=== PATIENT | male | born 1960 | race Caucasian/White ===

== ENCOUNTER → 2023-11-13 09:40 | Outpatient (REF) | payer OTHER, SELFPAY | LOC: RAD 09:40 | PROVIDERS: ATTENDING PHYSICIAN Family Medicine | DX: I63.81 Other cerebral infarction due to occlusion or stenosis of small artery (principal) | CPT/HCPCS: 93880 ==

== ENCOUNTER 2023-12-30 12:27 | Emergency (ER) | payer OTHER, SELFPAY ==
[2023-12-30] VITALS (9 sets, daily range): BP systolic 130–146; BP diastolic 90–104; PULSE 78–87
[2023-12-30 13:31] LABS: % Basophils 0.9 % (0-2); % Immature Granulocytes 0.4 % (0-0.5); % Lymphocytes 15.6 % (20.5-51.1); % Monocytes 6.4 % (1.7-9.3); % Neutrophils 72.7 % (42.2-75.2); Absolute Basophils 0.1 10^3/uL (0-0.2); Absolute Eosinophils 0.3 10^3/uL (0-0.7); Absolute Lymphocytes 1.1 10^3/uL (1.2-3.4); Absolute Monocytes 0.4 10^3/uL (0.1-0.6); Absolute Neutrophils 4.9 10^3/uL (1.4-6.5); Hematocrit 42.3 % (39.0-52.0); Hemoglobin 15.6 g/dL (13.0-18.0); Mean Corp Hgb Conc. 36.9 g/dL (33.0-37.0); Mean Corpuscular Hgb 31.4 pg (27.0-31.0); Mean Corpuscular Volume 85.1 fL (80.0-94.0); Mean Platelet Volume 9.8 fL (7.4-10.4); Nucleated Red Blood Cells % 0 % (-); Platelet Count 215 10^3/uL (130-400); Red Blood Cell Count 4.97 10^6/uL (4.70-6.10); Red Cell Dist. Width 12.9 % (11.5-14.5); White Blood Cell Count 6.7 10^3/uL (4.8-10.8)
[2023-12-30 13:51] LABS: ALT (SGPT) 28 U/L (0-50); AST (SGOT) 27 U/L (17-59); Albumin 4.3 g/dl (3.5-5.0); Alkaline Phosphatase 66 U/L (38-126); Blood Urea Nitrogen 15 mg/dl (9-20); Calcium 9.2 mg/dl (8.4-10.2); Carbon Dioxide 27 mmol/L (22-30); Chloride 102 mmol/L (98-107); Glucose 136 mg/dl (70-99); Magnesium 2.1 mg/dl (1.6-2.3); Potassium 4.1 mmol/L (3.5-5.1); Sodium 136 mmol/L (135-145); Total Bilirubin 1.1 mg/dl (0.2-1.3); Total Protein 6.8 g/dl (6.3-8.2); eGFR > 60.00
[2023-12-30 13:57] LABS: Troponin I < 0.012 ng/ml
--- NOTE | 2023-12-30 14:49 | ED.GENMED ---
History of Present Illness
General
Chief Complaint: Fainting/Passed Out
Source: patient and spouse
Exam Limitations: none
Time Seen by Provider: 12/30/23 12:47
Travel History
Have you had any contact with someone who has COVID-19?: No
Do you have any symptoms of coronavirus? Fever > 100 degrees, chills, cough, shortness of breath, sore throat, loss of taste or smell, muscle aches, or headache?: No
History of Present Illness
History of Present Illness:
This is a 63yo male who presents after he passed out at home. he states that he had had walked the dog and felt fine. he had intercourse with his and had taken a dose of a Viagra like medicine. Patient states he then went down to mid breakfast
and was walking out to sit down and have breakfast when he began to feel lightheaded like he is going to pass out. He sat down and got sweaty. His states that he then seemed to pass out very briefly. She went to call 9 1 he sort of woke up
and asked her not to. She states that he was unable to walk after the car. He denies any associated chest pain. No palpitations. No shortness of breath. Patient now feels much better. He states he does not really have any symptoms but just
does not feel perfect. He does report that he feels like his left shoulder should be held abducted but does not really hurt. There is no numbness or tingling. The patient does admit that he has had a lacunar infarct noted on an MRI but never had
any symptoms. He subsequently had a carotid ultrasound and echocardiogram that was okay and is to follow-up with neurology. He does take aspirin daily
Past History
Past History
ED Past Medical History: GERD and Other (Sarcoidosis, had a lacunar infarct on MRI but no symptoms)
ED Past Surgical History: Appendectomy and Other (Lymphnodes removed form Mediastinum, Hernia)
Social History
Tobacco: Non-smoker
Alcohol: Daily (Beer 1-2)
Drug: None
Personal:
Living: with family
Family History
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
Phy Exam
Physical Exam
Physical Exam:
CONSTITUTIONAL Patient alert and oriented to person, place and time. Well-appearing. Vital signs reviewed.
HEAD atraumatic, normocephalic.
EYES eyelids normal to inspection, Pupils equally round and reactive to light, Extraocular muscles intact, Conjunctiva normal, Sclera normal.
NECK normal range of motion, Trachea midline, no jugular venous distention.
RESPIRATORY CHEST No respiratory distress noted, Chest expansion equal, Bilateral breath sounds clear.
CARDIOVASCULAR regular rate and rhythm, Heart sounds normal.
ABDOMEN abdomen nontender, Bowel sounds normal. No distention.
BACK normal inspection, no obvious deformities
UPPER EXTREMITY range of motion normal, Motor strength normal, no cyanosis, no edema.
LOWER EXTREMITY range of motion normal, Motor strength normal, no cyanosis, no edema.
NEURO Speech normal, No focal motor deficits, [place] coma scale 15, Memory normal, Cranial Nerves intact to screening exam. No pronator drift. Normal [id number].
SKIN skin warm, dry, and normal in color.
PSYCHIATRIC patient oriented to person place and time, Normal affect.
Course
Orders/Labs/Results
Orders:
Orders
12/30/23 13:06
Electrocardiogram (*1) Urgent
Reason for Study: Syncope
EKG- Treatment ONCE
12/30/23 13:13
Cardiac Monitoring- Treatment ONCE
12/30/23 13:19
CT Head W/o Iv Contrast Urgent
Comment:
Reason For Exam: change in MS, resolved
12/30/23 13:20
Complete Blood Count/With Diff Urgent
Comprehensive Metabolic Panel Urgent
Magnesium Urgent
Troponin I Urgent
12/30/23 14:49
Electrocardiogram (*1) Stat
Reason for Study: Other
Other Reason for Exam: chest pain
EKG- Treatment ONCE
12/30/23 16:00
Troponin I Urgent
Abnormal Lab Results
12/30/23
13:20
MCH 31.4 H pg
(27.0-31.0)
Absolute Lymphs (auto) 1.1 L 10^3/uL
(1.2-3.4)
Lymphocytes % 15.6 L %
(20.5-51.1)
Glucose 136 H mg/dl
(70-99)
12/30/23 13:20
12/30/23 13:20
Vital Signs
Initial and Last Documented VS:
Initial Vital Signs
Temp Pulse Resp BP Pulse Ox
98.0 F 86 16 133/93 98
12/30/23 12:31 12/30/23 12:31 12/30/23 12:31 12/30/23 12:31 12/30/23 12:31
Last Documented Vital Signs
Temp Pulse Resp BP Pulse Ox
98.0 F 86 16 133/93 98
12/30/23 12:31 12/30/23 12:31 12/30/23 12:31 12/30/23 12:31 12/30/23 12:31
MDM/Problems Addressed
MDM/Problems Addressed:
syncope
*Radiology
Radiology exam reviewed: preliminary read by ED provider (no obvious hemorrhage) and radiology read reviewed
*Pulse Oximetry
Patient hypoxic: no
*EKG
Interpreted by ED Provider?: Yes
Interpretation: abnormal
Rate: normal
[place]: left axis deviation
Ischemia: non-specific ST changes
*[employer]visor Interpretation
Rate: normal
Interpretation: normal
Rhythm: sinus
*Critical Care Note
Total Time (30-74mins, 75-104mins- exclusive of procedures): Not Applicable
Data Reviewed
Review of Other/Old Records Reveals: Radiology Studies (Carotid ultrasound reviewed) and Other (Recent echocardiogram reviewed)
Further Testing Considered But Not Given:
Considered EEG but no obvious seizure activity. Suspect syncope
Patient Management
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 Low risk for CVA)
Escalation/DeEscalation of care consider admission/obs:
Patient is well-appearing and back to normal. I suspect syncope related to taking his Viagra. Labs grossly unremarkable but will repeat troponin to be safe. Outpatient follow-up if negative
ED Attending Note
-
Portions of this chart may have been created with voice recognition software.� Occasional wrong word or��sound alike� substitutions may have occurred due to the inherent limitations of voice recognition software.
Discharge Plan
Departure
Patient Disposition: Home (Routine Discharge)
Date of Disposition: 12/30/23
Time of Disposition: 15:43
Patient with high blood pressure during this ER visit?: Yes
Discharge Problem:
Syncope
Instructions: Syncope (Fainting) (DC), BLOOD PRESSURE
Prescriptions:
No Action
esomeprazole magnesium [Nexium] 40 MG capsule,delayed release(DR/EC)
40 mg PO DAILYPRN PRN (Reason: REFLUX)
Referrals:
Beka Lewis MD [Family Provider] -
Activity Restrictions/Additional Instructions:
Return immediately for chest pain of breath, weakness of any kind or any other concerns. Please see your doctor in the next 3 days for follow-up and reevaluation.
Interventions
Interventions:
*Risk Screen - Suicide Last Done: 12/30/23 12:55
*Neglect/Abuse Screening Last Done: 12/30/23 12:55
*ED COVID-19 Vaccine History Last Done: 12/30/23 12:31
ED- Cardiac Assessment Last Done: 12/30/23 12:55
ED- Neurological Assessment Last Done: 12/30/23 12:55
[2023-12-30 16:36] LABS: Troponin I < 0.012 ng/ml
== END 2023-12-30 17:02 | disposition home or self-care (01) ==
LOC: EMR 12:27
PROVIDERS: EMERGENCY PHYSICIAN Emergency Medicine; FAMILY PHYSICIAN Family Medicine
DX: R55 Syncope and collapse (principal); K21.9 Gastro-esophageal reflux disease without esophagitis; D86.9 Sarcoidosis, unspecified; Z79.82 Long term (current) use of aspirin; Z86.73 Personal history of transient ischemic attack (TIA), and cerebral infarction without residual deficits; Z90.49 Acquired absence of other specified parts of digestive tract
CPT/HCPCS: 99284; 70450; 80053; 83735; 84484; 85025; 93005

== ENCOUNTER → 2024-09-17 12:12 | Outpatient (REF) | payer OTHER, SELFPAY | LOC: UCDH 12:12 | PROVIDERS: ATTENDING PHYSICIAN Emergency Medicine; FAMILY PHYSICIAN Family Medicine | DX: S99.922A Unspecified injury of left foot, initial encounter (principal) | CPT/HCPCS: 73630 ==

== ENCOUNTER → 2025-09-07 14:02 | Outpatient (REF) | payer OTHER, SELFPAY | LOC: REG 14:02 | PROVIDERS: ATTENDING PHYSICIAN Family Medicine | DX: M54.50 Low back pain, unspecified (principal) | CPT/HCPCS: 74018 ==